=== PATIENT | female | born 1960 | race Caucasian/White ===

== ENCOUNTER 2021-09-30 04:25 | Day surgery (SDC) | payer OTHER ==
[2021-09-28 07:49] VITALS: BMI 28.1
[2021-09-30 08:19] VITALS: TEMP 97.5
[2021-09-30 09:29] VITALS: BP 100/57; PULSE 64
== END 2021-09-30 09:05 | disposition home or self-care (01) ==
LOC: JASU-ENDO 04:25
PROVIDERS: ATTEND Internal Medicine Gastroenterology
PROC: 0DJD8ZZ Inspection of Lower Intestinal Tract, Via Natural or Artificial Opening Endoscopic (ICD-10-PCS; 2021-09-30)
PROC: 0DJD8ZZ Inspection of Lower Intestinal Tract, Via Natural or Artificial Opening Endoscopic (ICD-10-PCS; principal; 2021-09-30 08:45)
DX: Z12.11 Encounter for screening for malignant neoplasm of colon (principal)